=== PATIENT | female | born 1975 | race African-American/Black ===

== ENCOUNTER 2024-07-26 06:20 | Emergency (ER) | payer MEDICAID, OTHER ==
[~2024-07-26] VITALS: Ht 177.8 cm; Wt 81.7 kg
[~2024-07-26 06:20] MED LIST: ALBUTEROL; LISI10TA26 PO; LISINOPRIL; METF-414 PO; METFORMIN
[2024-07-26 06:29] VITALS: O2SAT 99
[2024-07-26] MEDS: KETOROLAC 30MG/ML VIAL IM ONE (07:00)
[2024-07-26] MEDS ORDERED: CEL200 MT (07:03)
[2024-07-26 07:22] VITALS: BP 150/69; PULSE 78; RESP 18; TEMP 36.89184; O2SAT 99
== END 2024-07-26 07:25 | disposition home or self-care (01) ==
LOC: ER 06:20
DX: J11.1 Influenza due to unidentified influenza virus with other respiratory manifestations (principal); E11.9 Type 2 diabetes mellitus without complications; I10 Essential (primary) hypertension; Z79.899 Other long term (current) drug therapy
CPT/HCPCS: 96372; 99283; J1885; Z7610

== ENCOUNTER 2025-04-03 19:40 | Emergency (ER) | payer OTHER ==
[~2025-04-03] VITALS: Ht 180.3 cm; Wt 79.7 kg
[~2025-04-03 19:40] MED LIST changes: +CEL200 MT
[2025-04-03 19:43] VITALS: TEMP 37.1; O2SAT 98
[2025-04-03] MEDS ORDERED: OFLO5DRO4 LEFT EAR (21:25)
[2025-04-03 21:54] VITALS: BP 159/82; PULSE 72; RESP 18; O2SAT 100
[2025-04-03] MEDS ORDERED: NAPR-1176 MT (22:03)
== END 2025-04-03 22:06 | disposition home or self-care (01) ==
LOC: ER 19:40
DX: H60.92 Unspecified otitis externa, left ear (principal); E11.9 Type 2 diabetes mellitus without complications; I10 Essential (primary) hypertension; Z79.899 Other long term (current) drug therapy; Z79.1 Long term (current) use of non-steroidal anti-inflammatories (NSAID)
CPT/HCPCS: 99283